=== PATIENT | female | born 1990 | race Caucasian/White ===

== ENCOUNTER 2016-09-19 10:38 | Day surgery (SDC) | payer BC ==
[2016-09-13 14:44] LABS: BASOPHILS 0.4 %; BASOPHILS ABSOLUTE 0.03 10/3/uL (0.0-0.16); EOSINOPHILS 3.7 %; EOSINOPHILS ABSOLUTE 0.31 10/3/uL (0.0-0.53); HEMOGLOBIN 15.5 g/dL (12.0-16.0); IMMATURE GRANULOCYTES 0.2 %; IMMATURE GRANULOCYTES ABSOLUTE 0.02 10/3/uL (0.0-0.11); LYMPHOCYTES 24.8 %; MANUAL DIFF NO %; MEAN CORPUSCULAR HEMOGLOB 33.3 pg (26.0-34.0); MEAN CORPUSCULAR VOLUME 92.5 fL (80-100); MEAN PLATELET VOLUME 10.6 fL (9.2-13.0); MONOCYTES 8.1 %; MONOCYTES ABSOLUTE 0.69 10/3/uL (0.21-1.20); NEUTROPHILS 62.8 %; NEUTROPHILS ABSOLUTE 5.32 10/3/uL (2.02-8.40); PLATELET COUNT 213 10/3/uL (150-400); RBC DISTRIBUTION WIDTH 12.6 % (12.0-16.0); RED CELL COUNT 4.65 10/6/uL (4.0-5.6); WHITE BLOOD CELLS 8.5 10/3/uL (4.5-10.5)
[2016-09-13 15:03] LABS: A/G RATIO 1.5 (0.7-1.9); ALBUMIN 4.5 G/DL (3.5-5.0); ALKALINE PHOSPHATASE 67 U/L (45-117); BUN (BLOOD UREA NITROGEN) 10 MG/DL (6-23); CALCIUM, SERUM 9.4 MG/DL (8.5-10.4); CHLORIDE, SERUM 107 MMOL/L (96-112); CO2 (CARBON DIOXIDE) 26 MMOL/L (24-34); CREATININE 0.72 MG/DL (0.55-1.02); GFR AFRICAN AMERICAN 135 ML/MIN (>=60); GFR NON AFRICAN AMERICAN 116 ML/MIN (>=60); GLOBULIN 3.1 G/DL (2.5-4.1); GLUCOSE, SERUM 100 MG/DL (60-99); POTASSIUM, SERUM 3.8 MMOL/L (3.5-5.3); PREALBUMIN 20.5 MG/DL (17.0-43.0); SGOT(AST) 9 U/L (5-40); SGPT(ALT) 15 U/L (5-65); SODIUM, SERUM 139 MMOL/L (135-148); TOTAL BILIRUBIN 1.2 MG/DL (0-1.2); TOTAL PROTEIN 7.6 G/DL (6.0-8.5)
--- NOTE | ~2016-09-19 | OP ---
Record Of Operation [facility] [address] [place]. [address] NAME: SUBHA SANTACRUZ : 89 STATUS : [facility]#: [id number] AGE: 25 ADM/REG DATE : 09/19/16 MR#: [id number] REPORT SERV DATE: 09/19/16 DICTATED BY: KHADRA BATES JR. DATE: 09/19/16 REPORT STATUS : Draft TRANSCRIBED BY: FRANCIA DATE: 09/19/16 DATE OF PROCEDURE: 09/19/2016 SURGEON: Khadra Bates M.D. [employer] STRAIGHTENER: Imelda Willis. PROCEDURE: Repair of umbilical hernia. PREOPERATIVE DIAGNOSIS: Umbilical hernia. POSTOPERATIVE DIAGNOSIS: Umbilical hernia. ANESTHESIA: General. INDICATIONS: The patient presents with increasing symptomatic umbilical hernia. Repair is indicated. FINDINGS: There was evident reducible umbilical hernia with no other complicating features. This was repaired with an underlay synthetic mesh repair. DESCRIPTION OF PROCEDURE: With adequate general anesthesia, the patient was placed in the supine position. The abdomen was prepped and draped sterilely. 0.5% Marcaine was used for local infiltration. An inferior circum umbilical incision was made. Incision was deepened down through the dermis. The subdermal flap was raised superiorly to encompass the hernia. The hernia sac was excised sharply from the surrounding tissues. Underlying peritoneal contents were freed of the overlying fascia. Then a large polypropylene Ethicon disc was utilized. This was secured in place with 4 sutures of 0 Novafil, placed in mattress fashion at 12, 6, 3, and 9. The tapes were then divided at the fascial layer and then the fascia was closed over this with three stitches of 0-5 Novafil. This produced satisfactory closure. The wound was irrigated with saline. Then, the umbilicus was reapproximated with 3-0 Vicryl and the skin was closed with subcutaneous Vicryl and subcuticular Monocryl. Sterile dressing was applied. The patient left the operating room in satisfactory condition. The estimated blood loss was 10 mL. JERAD/FRANCIA Khadra Bates Jr., M.D. / [id number] CC: Khadra Bates Jr., M.D. Record Of Operation [address] [address] NAME: SUBHA SANTACRUZ : 89 STATUS : [facility] PAT#: [id number] AGE: 25 ADM/REG DATE : 09/19/16 MR#: [id number] REPORT SERV DATE: 09/19/16 DICTATED BY: KHADRA BATES JR. DATE: 09/19/16 REPORT STATUS : Draft TRANSCRIBED BY: MODL DATE: 09/19/16 Luis Alfredo Trinidad M.D.
[~2016-09-19 10:38] MED LIST: *DENIES
== END 2016-09-19 18:12 | disposition home or self-care (01) ==
LOC: SDC 10:38
PROVIDERS: Specialist
PROC: 0WQF0ZZ Repair Abdominal Wall, Open Approach (ICD-10-PCS; principal; 2016-09-19 12:45)
DX: K42.9 Umbilical hernia without obstruction or gangrene (principal); E16.2 Hypoglycemia, unspecified
CPT/HCPCS: 71020; 80053; 82962; 83036; 84134; 84703; 85025; 87641; 88302; A9270-GY; C1781; J0690; J1170; J2250; J2405; J2710; J3010